=== PATIENT | female | born 1990 | race African-American/Black ===

== ENCOUNTER 2019-09-06 17:02 | Emergency (ER) | payer SELFPAY ==
[~2019-09-06] VITALS: Ht 182.9 cm; Wt 68.0 kg
[2019-09-06 17:26] VITALS: BP 144/85
--- NOTE | 2019-09-06 17:45 | NUR ---
SEEN AND EXAMINED BY .
--- NOTE | 2019-09-06 17:55 | NUR ---
Patient discharged to home in stable condition. Written and verbal after care instructions given. Patient verbalizes understanding of instruction.
== END 2019-09-06 17:57 | disposition home or self-care (01) ==
LOC: EDSEX → ER 17:04
DX: F41.0 Panic disorder [episodic paroxysmal anxiety] (principal)

== ENCOUNTER 2019-09-11 17:02 | Emergency (ER) | payer MEDICAID ==
[~2019-09-11] VITALS: Ht 182.9 cm; Wt 70.3 kg
[2019-09-11 18:02] LABS: BASOPHILS % (AUTO) 0.4 % (0.0-2.0); EOSINOPHILS % (AUTO) 1.9 % (0.0-6.0); HEMATOCRIT 43 % (39-51); HEMOGLOBIN 14.7 g/dL (13.5-17.5); LYMPHOCYTES # (AUTO) 1.6 /CMM (0.8-4.8); LYMPHOCYTES % (AUTO) 21.7 % (20.0-44.0); MEAN CORPUSCULAR HGB CONC 34 g/dl (31.0-36.0); MEAN CORPUSCULAR VOLUME 101 fL (80-96); MONOCYTES # (AUTO) 0.4 /CMM (0.1-1.30); MONOCYTES % (AUTO) 5.7 % (2.0-12.0); NEUTROPHILS # (AUTO) 5.1 /CMM (1.8-8.9); NEUTROPHILS % (AUTO) 70.3 % (43.0-81.0); PLATELET COUNT (AUTO) 189 /CMM (150-450); RED BLOOD CELL COUNT(AUTO) 4.27 MIL/uL (4.5-6.0); WHITE BLOOD COUNT (AUTO) 7.2 K/uL (4.3-11.0)
[2019-09-11 18:03] LABS: BILIRUBIN,URINE SMALL (NEGATIVE); BLOOD, URINE Negative Ery/uL (NEGATIVE); KETONES,URINE Trace (NEGATIVE); LEUKOCYTE ESTERASE ,URINE Negative (NEGATIVE); NITRITE, URINE Negative (NEGATIVE); PROTEIN,URINE 30 mg/dl (NEGATIVE); UGLUCOSE Negative (NEGATIVE); UROBILINOGEN,URINE 0.2 EU/dL (0.2)
[2019-09-11 18:05] LABS: APPEARANCE,URINE SLIGHTLY HAZY (CLEAR); COLOR,URINE DARK YELLOW (YELLOW)
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
[2019-09-11 18:14] LABS: BACTERIA,URINE Rare /HPF (None Seen); RBC,URINE 0-2 /HPF (0-2); WBC,URINE 0-2 /HPF (0-3)
[2019-09-11 18:15] LABS: CALCIUM OXALATE CRYSTALS,UR Rare /HPF (None Seen); SQUAMOUS EPITHELIAL CELL,UR None Seen /HPF (None Seen)
[2019-09-11 18:22] LABS: CALCIUM, SERUM 9.2 mg/dL (8.5-10.1); CARBON DIOXIDE 29 mmol/L (21-32); CHLORIDE 101 mmol/L (98-107); CREATININE 1.3 mg/dL (0.6-1.3); GLUCOSE 99 mg/dL (74-106); POTASSIUM 3.6 mmol/L (3.5-5.1); SODIUM SERUM 139 mmol/L (136-145); UREA NITROGEN, BLOOD 14 mg/dL (7-18)
[2019-09-11 18:26] LABS: ALANINE AMINOTRANSFERASE 33 U/L (12-78); ALBUMIN 4.4 g/dL (3.4-5.0); ALCOHOL, BLOOD < 3 mg/dL (0-0); ALKALINE PHOSPHATASE 42 U/L (46-116); ASPARTATE AMINOTRANSFERASE 23 U/L (15-37); BILIRUBIN,DIRECT 0.1 mg/dL (0.0-0.2); BILIRUBIN,TOTAL 0.3 mg/dL (0.2-1.0); SALICYLATE 4.7 mg/dL (2.8-20.0); TOTAL PROTEIN, SERUM 7.7 g/dL (6.4-8.2)
[2019-09-11 18:33] LABS: ACETAMINOPHEN 0 ug/ml (10-30)
--- NOTE | 2019-09-11 19:20 | NUR ---
CALLED SARABJIT, ETA 1 HOUR
--- NOTE | 2019-09-11 20:29 | NUR ---
PINK FROM CRISIS AT BEDSIDE
--- NOTE | 2019-09-11 23:57 | NUR ---
Patient is resting comfortably in bed. Easily aroused. VSS.
--- NOTE | 2019-09-12 01:13 | NUR ---
PT ASLEEP, NO ACUTE DISTRESS NOTED, RESP EVEN AND UNLABORED. CALL LIGHT WITHIN REACH. WILL CONTINUE TO MONITOR PT CLOSELY. 1:1 SITTER AT BEDSIDE.
--- NOTE | 2019-09-12 03:17 | NUR ---
Patient is resting comfortably in bed. Easily aroused. VSS.
--- NOTE | 2019-09-12 05:47 | NUR ---
CLINICAL FAXED TO [facility] FOR VOLUNTARY ADMISSION.
--- NOTE | 2019-09-12 06:25 | NUR ---
PER [facility] INTA[facility], PT NOT ACCEPTED AT [facility], "DOES NOT MEET PSYCH CRITERIA"
--- NOTE | 2019-09-12 08:51 | NUR ---
CHRIS BEYER MOTHER [phone]
--- NOTE | 2019-09-12 09:48 | NUR ---
seen by KIRA Harrell
--- NOTE | 2019-09-12 10:18 | NUR ---
per Sharri MALONE, mother will come to pick patient.
[2019-09-12 11:27] VITALS: BP 128/64
--- NOTE | 2019-09-12 11:28 | NUR ---
Patient discharged to home in stable condition. Written and verbal after care instructions given. Patient verbalizes understanding of instruction.
== END 2019-09-12 11:28 | disposition home or self-care (01) ==
LOC: ER 17:03 → EDSEX 17:03 → ER 09-12 11:28
DX: R45.1 Restlessness and agitation (principal); R45.6 Violent behavior; R41.82 Altered mental status, unspecified; F41.9 Anxiety disorder, unspecified; Z88.0 Allergy status to penicillin; Z88.1 Allergy status to other antibiotic agents
CPT/HCPCS: 36415; 71045; 80048; 80076; 80305; 80307; 80329; 81001; 85025; 99285; G0480; 81000-TC

== ENCOUNTER 2019-12-10 02:12 | Emergency (ER) | payer SELFPAY ==
[~2019-12-10] VITALS: Ht 182.9 cm; Wt 72.6 kg
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
--- NOTE | 2019-12-10 02:37 | NUR ---
ER MD AT BEDSIDE TO EVAL PT WITH ORDERS RECEIVED.
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
--- NOTE | 2019-12-10 02:49 | NUR ---
HOT DOG VENDER AT BEDSIDE FOR BLOOD DRAW
[2019-12-10 03:06] LABS: BASOPHILS % (AUTO) 0.5 % (0.0-2.0); EOSINOPHILS % (AUTO) 2.8 % (0.0-6.0); HEMATOCRIT 43 % (39-51); HEMOGLOBIN 14.3 g/dL (13.5-17.5); LYMPHOCYTES # (AUTO) 2.8 /CMM (0.8-4.8); LYMPHOCYTES % (AUTO) 37.9 % (20.0-44.0); MEAN CORPUSCULAR HGB CONC 34 g/dl (31.0-36.0); MEAN CORPUSCULAR VOLUME 101 fL (80-96); MONOCYTES # (AUTO) 0.4 /CMM (0.1-1.30); NEUTROPHILS # (AUTO) 3.9 /CMM (1.8-8.9); NEUTROPHILS % (AUTO) 52.8 % (43.0-81.0); PLATELET COUNT (AUTO) 185 /CMM (150-450); WHITE BLOOD COUNT (AUTO) 7.3 K/uL (4.3-11.0)
[2019-12-10 03:23] LABS: ALANINE AMINOTRANSFERASE 79 U/L (12-78); ALBUMIN 4.2 g/dL (3.4-5.0); ALCOHOL, BLOOD < 3 mg/dL (0-0); ALKALINE PHOSPHATASE 48 U/L (46-116); ASPARTATE AMINOTRANSFERASE 77 U/L (15-37); BILIRUBIN,DIRECT 0.2 mg/dL (0.0-0.2); BILIRUBIN,TOTAL 0.5 mg/dL (0.2-1.0); CALCIUM, SERUM 9.1 mg/dL (8.5-10.1); CARBON DIOXIDE 29 mmol/L (21-32); CHLORIDE 101 mmol/L (98-107); CREATININE 0.9 mg/dL (0.6-1.3); GLUCOSE 107 mg/dL (74-106); POTASSIUM 3.8 mmol/L (3.5-5.1); SALICYLATE 5.6 mg/dL (2.8-20.0); SODIUM SERUM 135 mmol/L (136-145); TOTAL PROTEIN, SERUM 7.3 g/dL (6.4-8.2); UREA NITROGEN, BLOOD 17 mg/dL (7-18)
[2019-12-10 03:28] LABS: ACETAMINOPHEN 0 ug/ml (10-30)
[2019-12-10] MEDS ORDERED: OLANZAPINE 5 MG TABLET ONE (03:34)
--- NOTE | 2019-12-10 03:40 | NUR ---
PT APPEARS VERY PARANOID. PACING AROUND HALLWAY, CONSTANTLY NEEDS REDIRECTING BACK TO BED. MD AWARE, SECURITY AT BEDSIDE
[2019-12-10] MEDS ORDERED: LORAZEPAM 1 MG TABLET ONE (03:46)
[2019-12-10] MEDS ORDERED: OLANZAPINE 5 MG TABLET PO ONE (04:00)
[2019-12-10] MEDS ORDERED: LORAZEPAM 1 MG TABLET PO ONE (04:00)
--- NOTE | 2019-12-10 04:28 | NUR ---
CALLED DOMINIC RICHARDSON FOR EVALUATION
[2019-12-10 04:31] LABS: APPEARANCE,URINE CLEAR (CLEAR); BILIRUBIN,URINE NEGATIVE (NEGATIVE); BLOOD, URINE NEGATIVE Ery/uL (NEGATIVE); COLOR,URINE YELLOW (YELLOW); KETONES,URINE TRACE (NEGATIVE); LEUKOCYTE ESTERASE ,URINE NEGATIVE (NEGATIVE); NITRITE, URINE NEGATIVE (NEGATIVE); PH,URINE 6.5 (5.0-8.0); PROTEIN,URINE NEGATIVE (NEGATIVE); UGLUCOSE NEGATIVE (NEGATIVE); UROBILINOGEN,URINE 0.2 EU/dL (0.2)
[2019-12-10 04:39] LABS: BACTERIA,URINE Rare /HPF (None Seen); MUCUS,URINE Moderate /LPF (None Seen); RBC,URINE 0-2 /HPF (0-2); SQUAMOUS EPITHELIAL CELL,UR Rare /HPF (None Seen); WBC,URINE 0-2 /HPF (0-3)
--- NOTE | 2019-12-10 07:30 | NUR ---
PT RESTING COMFORTABLY IN BED. VITAL SIGNS STABLE. SITTER AT BEDSIDE
[2019-12-10] MEDS ORDERED: OLANZAPINE 10 MG VIAL IM ONE ×3 (13:09→13:30)
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
--- NOTE | 2019-12-10 13:50 | NUR ---
[employer] STEFAN, ETA 30 MINUTES
--- NOTE | 2019-12-10 14:00 | NUR ---
PT'S RESTRAINT WAS REMOVED AND DISCONTINUED. PT IS COOPERATIVE, COMPLIANT AND CALM. PT WAS OFFERED FOOD AND DRINK BUT REFUSED. PT WAS ALSO OFFERED TO GO TO TOILET BUT NOT AT THIS TIME. SITTER AT BEDSIDE FOR 1:1
--- NOTE | 2019-12-10 15:07 | NUR ---
[employer]man: Susan will evaluate and speak to mother about recent disposition. [employer] to remain available for all needs.
--- NOTE | 2019-12-10 15:31 | NUR ---
PT IS MEDICALLY AND PSYCHIATRICALLY CLEARED FOR DISCHARGE. PT IS IN STABLE CONDTION. ACI GIVEN TO PT. PT'S MOTHER PICKED UP THE PT.
[2019-12-10 16:37] VITALS: BP 131/73
== END 2019-12-10 16:38 | disposition home or self-care (01) ==
LOC: ER 02:12
DX: F28 Other psychotic disorder not due to a substance or known physiological condition (principal); F41.9 Anxiety disorder, unspecified; M79.7 Fibromyalgia; F17.200 Nicotine dependence, unspecified, uncomplicated; F12.90 Cannabis use, unspecified, uncomplicated; R45.1 Restlessness and agitation; Z88.0 Allergy status to penicillin; Z88.1 Allergy status to other antibiotic agents
CPT/HCPCS: 36415; 80048; 80076; 80305; 80307; 80329; 81001; 85025; 96372; 99291; G0480; J3490; 81000-TC